=== PATIENT | female | born 1975 | race Caucasian/White ===

== ENCOUNTER 2018-09-02 15:22 | Emergency (ER) | payer MEDICAID ==
[~2018-09-02] VITALS: Ht 154.9 cm; Wt 77.2 kg
[2018-09-02 19:07] LABS: CLARITY URINE CLEAR (CLEAR); COLOR URINE YELLOW (YELLOW); KETONES URINE NEGATIVE (NEGATIVE); LEUKOCYTE ESTERASE URINE 1+ (NEGATIVE); NITRITE URINE NEGATIVE (NEGATIVE); OCCULT BLOOD URINE TRACE (NEGATIVE); PH URINE 6.5 (4.5-8.0); PROTEIN URINE NEGATIVE (NEGATIVE); UROBILINOGEN URINE 0.2 E.U./dL (0.2-1.0)
[2018-09-02] MEDS ORDERED: CEFTRIAXONE SODIUM 250 MG/VIAL IM ONE (20:00)
[2018-09-02] MEDS ORDERED: AZITHROMYCIN 500 MG TABLET PO ONE (20:00)
[2018-09-02 21:16] VITALS: BP 120/84
[2018-09-05 08:15] LABS: CHLAMYDIA TRACHOMATIS NAA Negative (Negative); NEISSERIA GONORRHOEAE NAA Negative (Negative)
== END 2018-09-02 21:18 | disposition home or self-care (01) ==
LOC: ER 15:22
DX: N39.0 Urinary tract infection, site not specified (principal); N76.0 Acute vaginitis; B96.89 Other specified bacterial agents as the cause of diseases classified elsewhere; N89.8 Other specified noninflammatory disorders of vagina; Z98.890 Other specified postprocedural states
CPT/HCPCS: 81003; 81025; 87086; 87210; 87491; 87591; 96372; 99283; J0696

== ENCOUNTER 2018-09-09 15:05 | Emergency (ER) | payer MEDICAID ==
[~2018-09-09] VITALS: Ht 152.4 cm; Wt 72.0 kg
[2018-09-09 15:11] VITALS: BP 131/83
== END 2018-09-09 19:35 | disposition left against medical advice (07) ==
LOC: ER 15:05
DX: R07.9 Chest pain, unspecified (principal); Z53.21 Procedure and treatment not carried out due to patient leaving prior to being seen by health care provider